=== PATIENT | female | born 1960 | race Caucasian/White ===

== ENCOUNTER → 2018-05-31 | Outpatient (CLI) | payer OTHER | END | disposition home or self-care (01) | LOC: RAH 12:36 | PROVIDERS: ATTEND Internal Medicine | DX: R60.9 Edema, unspecified (principal) | CPT/HCPCS: 93926; 93971 ==

== ENCOUNTER → 2021-03-16 | Outpatient (CLI) | payer OTHER | END | disposition home or self-care (01) | LOC: SHCH 11:10 | PROVIDERS: ATTEND Student in an Organized Health Care Education/Training Program | DX: I37.1 Nonrheumatic pulmonary valve insufficiency (principal) | CPT/HCPCS: 93306 ==